=== PATIENT | female | born 1965 | race Caucasian/White ===

== ENCOUNTER 2017-01-19 16:33 | Observation (INO) | payer BC ==
[2017-01-19] MEDS ORDERED: Aspirin Low Dose CHEW TAB* 81 MG PO ONE (17:06)
[2017-01-19 17:59] LABS: Hematocrit 40 % (35-47); Hemoglobin 13.6 g/dl (12.0-16.0); Mean Corpuscular HGB Conc 34 g/dl (31-36); Mean Corpuscular Hemoglobin 32 pg (27-31); Mean Corpuscular Volume 95 fL (80-97); Mean Platelet Volume 10 um3 (7.4-10.4); Red Blood Count 4.26 10^6/ul (4.0-5.4); Red Cell Distribution Width 13 % (10.5-15); White Blood Count 7.1 10^3/ul (3.5-10.8)
--- NOTE | 2017-01-19 18:14 | RAD ---
INDICATION: Chest pain x2 days COMPARISON: None. TECHNIQUE: Single AP portable view of the chest was obtained. FINDINGS: Image quality is compromised due to the relative inferiority of a portable chest x-ray. The heart and mediastinum exhibit normal size and contour. The lungs are grossly clear. There is no evidence of a large pleural effusion. Visualized bones are normal for the patient's age. IMPRESSION: No radiographic evidence for acute cardiopulmonary abnormality on this portable chest x-ray.
[2017-01-19 18:19] LABS: Albumin 4.1 g/dL (3.2-5.2); Calcium 10.2 mg/dL (8.6-10.3); EGFR African American 85.7 (>60); EGFR Non-African American 66.6 (>60); Globulin 2.7 g/dL (2-4); Total Bilirubin 0.3 mg/dL (0.2-1.0); Total Protein 6.8 g/dL (6.4-8.9)
[2017-01-19 18:54] LABS: Potassium 4.2 mmol/L (3.5-5.0)
[2017-01-19] MEDS ORDERED: Acetaminophen TAB* 325 MG PO PRN (20:00)
[2017-01-19] MEDS ORDERED: Ondansetron INJ* 2 MG/ML VIAL IV PRN (20:00)
[2017-01-19 20:50] LABS: BUN/Creatinine Ratio 27.2 (8-20); Blood Urea Nitrogen 22 mg/dL (6-24); CO2 Carbon Dioxide 25 mmol/L (22-32); Calcium 9.7 mg/dL (8.6-10.3); Chloride 106 mmol/L (101-111); EGFR African American 95.5 (>60); EGFR Non-African American 74.3 (>60); Glucose 87 mg/dL (70-100); Sodium 139 mmol/L (133-145)
[2017-01-19 20:59] LABS: Anion Gap 8 mmol/L (2-11)
[2017-01-19] MEDS ORDERED: Heparin VIAL(*) 5000 UNITS/ML VIAL (FIVE THOUSAND) SUBCUT SCH (22:00)
--- NOTE | 2017-01-19 23:23 | HP ---
CC: Dr. Motley HISTORY AND PHYSICAL: DATE OF ADMISSION: 01/19/17 PRIMARY CARE PROVIDER: Dr. Motley ATTENDING PHYSICIAN WHILE IN THE HOSPITAL: Emeterio Austin MD * (report dictated by Daniel Cespedes NP). CHIEF COMPLAINT: Chest pain. HISTORY OF PRESENTING ILLNESS: Mrs. Weeks is a 51-year-old female patient. She has a history of asthma and history of kidney stones. She comes into the ER today stating that this morning she awoken up out of sleep with chest discomfort in the left side of her chest that went into her shoulder and upper neck. She said she did get short of breath. She felt fatigued. She was kind of diaphoretic with this. She says the pain was not exertional. When she tucks her shoulder, she noticed that she was tender there, but it did not get worse with any movement of the shoulder or sitting upright or lying flat. She was concerned because the pain kind of waxed and waned all day. It was described at times as a pressure and heaviness and then she had some chest tightness. She states that she has not had any recent trips or travel. She denied having any shortness of breath. She did state she could not take full breath. She denied having any recent fevers or chills. No URI type symptoms. Denied having any abdominal discomfort or any nausea or vomiting. She was concerned and decided to come into the ER today, was evaluated. Hospitalist service was asked to evaluate for admission for chest pain. PAST MEDICAL HISTORY: Significant for: 1. Nephrolithiasis. 2. Asthma. PAST SURGICAL HISTORY: 1. She has had a partial hysterectomy. 2. Tubal ligation. 3. Lithotripsy. 4. She has had a breast reduction. HOME MEDICATIONS: Include: 1. Super B-50 one tablet p.o. in the morning. 2. Essential oil 3% topically t.i.d. as needed. 3. Sulfurzyme 2 tablets p.o. daily. ALLERGIES TO MEDICATIONS: Include DEMEROL, LATEX, TAPE, and QUINOLONES. FAMILY HISTORY: Mother had a history of hypertension and breast cancer. Father had a history of prostate cancer. SOCIAL HISTORY: She does not smoke. Rarely drinks alcohol. Surrogate decision maker is her . REVIEW OF SYSTEMS: There is no documented fever. She denied having any significant weight change. There was no double vision. She denies having any ear discharge. There is no rhinorrhea. There is no sore throat. No thyroid enlargement. There was chest pain per my HPI. There was no shortness of breath , no orthopnea. There was no nocturnal dyspnea. There was no abdominal pain. There was no nausea, no vomiting. No dysuria. No frequency. No seizure. No loss of consciousness. No pruritus and no skin ulceration. Review of 14 systems completed, all others negative. PHYSICAL EXAMINATION GENERAL: At this time, Mrs. Weeks is a 51-year-old female patient. She is sitting on the ER stretcher. She does not appear to be in any acute distress. VITAL SIGNS: Blood pressure 105/58, pulse 54, respirations 18, O2 sat 98%, temperature 97.7. HEENT: Head: Atraumatic, normocephalic. Eyes: EOMs intact. Sclerae are anicteric and not pale. Throat: Oral mucosa appears to be moist. No oropharyngeal erythema. NECK: Supple. LUNGS: Clear to auscultation bilaterally. No wheezes, rales, or rhonchi. HEART: Sounds S1, S2. Regular rate and rhythm. No murmurs, rubs, or gallops. ABDOMEN: Soft, flat, nontender. Bowel sounds present. EXTREMITIES: Pulses are 2+ throughout. She is able to move all 4 extremities with 5/5 strength. NEUROLOGICAL: The patient is awake, alert, and oriented x3. Speech clear. Tongue midline. Customer Service Trainer equal. No gross focal deficits. SKIN: Intact. DIAGNOSTIC STUDIES/LAB DATA: WBC is 7.1, RBC 4.26, hemoglobin 13.6, hematocrit of 40, platelet count of 203. D-dimer less than 200. Sodium of 139 , potassium 4.2, chloride of 107, bicarb 29, BUN 24, creatinine 0.89, glucose 87 , lactic 0.5, calcium 10. Total bili 0.3, AST 18, ALT 14, alk phos 69. Troponin 0. Albumin of 4.1. She did have a chest x-ray obtained today, impression: No radiographic evidence for acute cardiopulmonary abnormality on this portable chest. EKG obtained today showed a normal sinus rhythm at a rate of 60. She did have flat T-waves in V2, inverted in V1, but no ST elevations were noted. Old medical records were reviewed. ASSESSMENT AND PLAN: Mrs. Weeks is a 51-year-old female patient coming in with complaints of chest pain. We were asked to evaluate for admission. She will be admitted under observation status for: 1. Chest pain. Her story is concerning that she still has chest tightness at times and has waxed and waned throughout the day, but the fact that she did not make the pain come back with touching her chest, it is not reproducible now on my exam; however, she did have some chest tightness. She did become diaphoretic at once and did feel nauseated. I do feel that she does deserve further troponins, EKG, telemetry. In addition to this, I will get a stress test tomorrow morning and we will start her on aspirin. Her D-dimer was negative and we will continue to follow her. 2. History of nephrolithiasis, not an active issue. 3. Asthma. She got asthma as a child. She is no longer on any medications. 4. DVT prophylaxis. She will be placed on SCDs. She is low risk. 5. Code status. Full code. 6. Fluids, electrolytes, and nutrition. She can have a heart-healthy diet and n.p.o. after midnight. TIME SPENT: Time spent on this admission was 60 minutes, greater than half time was spent [id number] with the patient obtaining my history and physical, other half the time was spent going over the plan of care with the patient and implementing the plan of care. I did discuss plan of care with my attending, Dr. Austin, who is in agreement. DANIEL CESPEDES, MILLIE [id number]/[facility] #: [id number] JAE
[2017-01-20 05:01] LABS: Hematocrit 40 % (35-47); Hemoglobin 13.5 g/dl (12.0-16.0); Mean Corpuscular HGB Conc 34 g/dl (31-36); Mean Corpuscular Hemoglobin 32 pg (27-31); Mean Corpuscular Volume 94 fL (80-97); Mean Platelet Volume 10 um3 (7.4-10.4); Red Cell Distribution Width 13 % (10.5-15); White Blood Count 5.4 10^3/ul (3.5-10.8)
[2017-01-20 05:15] LABS: HDL Cholesterol 48.5 mg/dL
[2017-01-20 08:55] VITALS: BP 116/70
[2017-01-20] MEDS ORDERED: Aspirin Low Dose CHEW TAB* 81 MG PO SCH (09:00)
--- NOTE | 2017-01-20 12:37 | RAD ---
HISTORY: Chest pain COMPARISONS: None TECHNIQUE: A 1 day stress/rest myocardial perfusion study was performed, with exercise stress. The exercise portion was performed using the Jeremy protocol, for a total METs of 12 point. The stress portion was monitored by Dr. Benito. Gated SPECT imaging was performed, with CT-based attenuation correction DOSE: Stress: Technetium 99m tetrofosmin, 25.37 millicuries, injected at 11:40 AM on January 20, 2017 Rest: Technetium 99m tetrofosmin, 10.3 millicuries, injected at 6:30 AM on January 20, 2017 Pharmacologic agent: None FINDINGS: CARDIAC MONITORING: Peak heart rate of 165 bpm, 98% of predicted. No ischemic changes with stress. EF: 70 % TID: 0.98 MOTION: Normal motion, with normal wall thickening. PERFUSION: There are no fixed or reversible perfusion defects. OTHER: None IMPRESSION: NO FIXED OR REVERSIBLE PERFUSION DEFECTS. ASSESSMENT: LOW RISK. Based on imaging criteria from ACC/AHA 2002. Guideline Update for the Management of Patient's with Chronic Stable Angina, table 23. Noninvasive Risk Stratification.
--- NOTE | 2017-01-20 13:19 | DCNOTE ---
Patient seen today after stress test. States chest pain has subsided, now not too bothersome. No SOB. On exam, RRR, s1 and s2 present, CTA B/L, no LE edema CP likely MSK. Cardiac work-up negative for ischemia. D/C home with PCP f/u
--- NOTE | 2017-01-21 00:06 | DS ---
CC: Dr. Rebekah Motley * DISCHARGE SUMMARY: DATE OF ADMISSION: 01/19/17 DATE OF DISCHARGE: 01/20/17 PRIMARY CARE PHYSICIAN: Dr. Rebekah Motley. PRINCIPAL DISCHARGE DIAGNOSIS: Chest pain, likely musculoskeletal. SECONDARY DIAGNOSES: 1. Nephrolithiasis. 2. History of asthma. DISCHARGE MEDICATION REGIMEN: 1. B complex 1 tablet by mouth daily. 2. Essential oil 3% topical 3 times daily as needed for pain. STUDIES DONE DURING HOSPITALIZATION: Chest x-ray impression: No radiographic evidence for acute cardiopulmonary abnormality on this portable chest x-ray. Nuclear cardiac stress test, impression: No fixed or reversible perfusion defects. Assessment, low risk. HISTORY OF PRESENT ILLNESS AND HOSPITAL SUMMARY: Please see the full history and physical by Daniel Cespedes NP for full details. Briefly, Ms. Weeks is a 61 -year- old female with past medical history as above, who presented to the hospital with 2 days of ongoing chest pain. The pain began when she was asleep and woke her up. It was radiating to the shoulder and the neck. It persisted over the following days and a friend at work urged her to come to the hospital for further workup. The patient's EKG was unremarkable. Troponins were trended and remained negative. Sent over to nuclear cardiac stress test that was unremarkable as above. D-dimer was negative. It was felt that her pain was likely due to musculoskeletal cause. She was encouraged to try Tylenol and ibuprofen over the next few for pain and follow up with Dr. Motley, her PCP as an outpatient. TIME SPENT: Total time spent on this discharge was 45 minutes. This is a summary of hospitalization. Please see the full medical record for further details. [id number]/[facility] #: [id number] [facility]
--- NOTE | 2017-01-21 10:24 | ED ---
Stephanie Jacobson Nilda, scribed for Gabe Ramirez MD on 01/20/17 at 0056 . HPI Chest Pain - HPI Summary HPI Summary: This patient is a 51 year old F presenting to [facility] accompanied by with a chief complaint of intermittent left-sided CP (heaviness) that radiated up left shoulder and upper back since 2 nights ago. Pain woke her from sleep. The patient rates the pain 1/10 in severity currently. Symptoms aggravated by deep inspiration and movement. Symptoms alleviated by spontaneous resolution. Patient reports back pain, left shoulder pain, and mild dyspnea, but denies pain in UE, cough, rash, and edema. Patient experiences heavy lifting daily. She does not take medication. She is a non-smoker and does not drink alcohol. She denies recent travel and long car trips. FHx OR. - History of Current Complaint Chief Complaint: EDChestPainROMI Time Seen by Provider: 01/19/17 17:02 Hx Obtained From: Patient Onset/Duration: Started Days Ago Timing: Intermittent Initial Severity: Severe Current Severity: Mild Pain Intensity: 2 Pain Scale Used: 0-10 Numeric Chest Pain Location: Left Lateral Chest Pain Radiates: Yes Chest Pain Radiates To:: Back, Shoulder Character: Heaviness Aggravating Factor(s): Movement, Deep Breaths Alleviating Factor(s): Spontaneous Resolution Associated Signs and Symptoms: Positive: Other: - back pain, left shoulder pain , and mild dyspnea, but denies pain in UE, cough, rash, and edema. - Allergy/Home Medications Allergies/Adverse Reactions: Allergies Allergy/AdvReac Type Severity Reaction Status Date / Time Meperidine [From Demerol HCl] Allergy Mild RASH, HIVES Verified 01/19/17 17:38 Latex Allergy Unknown UNK Verified 01/19/17 17:41 Adhesive Tape Allergy Unknown Verified 01/19/17 17:38 Reaction Details NUTS Allergy Unknown Uncoded 01/19/17 17:38 Reaction Details WHOLE WHEAT Allergy ANAPHYLACTI Uncoded 01/19/17 17:38 C PMH/Surg Hx/FS Hx/Imm Hx Respiratory History: Reports: Hx Asthma - CHILD, OK NOW History: Reports: Hx Kidney Stones - RIGHT KIDNEY STONE 2009 Musculoskeletal History: Reports: Other Musculoskeletal History - SPONDYLOSIS DX 2010 Sensory History: Reports: Hx Contacts or Glasses - CONTACTS, WILL WEAR GLASSES DOS Denies: Hx Hearing Aid Opthamlomology History: Reports: Hx Contacts or Glasses - CONTACTS, WILL WEAR GLASSES DOS - Surgical History Surgery Procedure, Year, and Place: WISDOM TEETH TEEN Hx Anesthesia Reactions: Yes Infectious Disease History: No Infectious Disease History: Denies: Traveled Outside the [place] in Last 30 Days - Family History Known Family History: Positive: Cardiac Disease - Social History Alcohol Use: Occasionally Substance Use Type: Reports: None Smoking Status (MU): Never Smoked Tobacco Review of Systems Negative: Fever, Chills Negative: Erythema Negative: Sore Throat Positive: Chest Pain - left sided CP (heaviness) Positive: Other - mild dyspnea. Negative: Shortness Of Breath, Cough Negative: Abdominal Pain, Vomiting, Nausea Negative: dysuria, hematuria Positive: Other - back pain, left shoulder pain; negative pain in UE. Negative : Myalgia, Edema Negative: Rash Neurological: Other - negative dizziness All Other Systems Reviewed And Are Negative: Yes Physical Exam - Summary Physical Exam Summary: Constitutional: Well-developed, Well-nourished, Alert. (-) Distressed Skin: Warm, Dry HENT: Normocephalic; Atraumatic Eyes: Conjunctiva normal Neck: Musculoskeletal ROM normal neck. (-) JVD, (-) Stridor, (-) Tracheal deviation Cardio: Rhythm regular, rate normal, Heart sounds normal; Intact distal pulses; The pedal pulses are 2+ and symmetric. Radial pulses are 2+ and symmetric. (-) Murmur Pulmonary/Chest wall: Effort normal. (-) Respiratory distress, (-) Wheezes, (-) Rales Abd: Soft, (-) Tenderness, (-) Distension, (-) Guarding, (-) Rebound Musculoskeletal: (-) Edema Lymph: (-) Cervical adenopathy Neuro: Alert, Oriented x3 Psych: Mood and affect Normal Triage Information Reviewed: Yes Vital Signs On Initial Exam: Initial Vitals Temp Pulse Resp BP Pulse Ox 97.7 F 61 20 151/78 100 01/19/17 16:44 01/19/17 16:44 01/19/17 16:44 01/19/17 16:44 01/19/17 16:44 Vital Signs Reviewed: Yes Diagnostics - Vital Signs Vital Signs Temp Pulse Resp BP Pulse Ox 01/19/17 16:44 97.7 F 61 20 151/78 100 - Laboratory Result Diagrams: 01/19/17 17:49 01/19/17 21:05 Lab Statement: Any lab studies that have been ordered have been reviewed, and results considered in the medical decision making process. - EKG 1653 Cardiac Rate: NL - 60 bpm EKG Rhythm: Sinus Rhythm EKG Interpretation: No STEMI Chest Pain Course/Dx - Course Course Of Treatment: This patient is a 51 year old F presenting to [facility] accompanied by with a chief complaint of intermittent left-sided CP ( heaviness) that radiated up left shoulder and upper back since 2 nights ago. Pain woke her from sleep. The patient rates the pain 1/10 in severity currently. Symptoms aggravated by deep inspiration and movement. Symptoms alleviated by spontaneous resolution. Patient reports back pain, left shoulder pain, and mild dyspnea, but denies pain in UE, cough, rash, and edema. Patient experiences heavy lifting daily. She does not take medication. She is a non- smoker and does not drink alcohol. She denies recent travel and long car trips. FHx OR. EKG reveals NSR, 60 bpm, No STEMI. 1957: Dr. Cespedes ( hospitalist) agrees to admit patient with a diagnosis of Chest Pain, unspecified. - Diagnoses Provider Diagnoses: Chest pain, unspecified - Provider Notifications Discussed Care Of Patient With: Daniel Cespedes - Hospitalist Time Discussed With Above Provider: 19:58 Instructed by Provider To: Admit As Inpatient Discharge - Discharge Plan Condition: Stable Disposition: ADMITTED TO [facility] The documentation as recorded by the Stephanie marshall Nilda accurately reflects the service I personally performed and the decisions made by me, Gabe Ramirez MD.
== END 2017-01-20 14:00 | disposition home or self-care (01) ==
LOC: ED 16:33 → MEDTELE 19:58
PROVIDERS: ADMIT Internal Medicine; ATTEND Hospitalist
DX: R07.9 Chest pain, unspecified (principal); R06.02 Shortness of breath; Z87.442 Personal history of urinary calculi; Z88.8 Allergy status to other drugs, medicaments and biological substances; Z79.899 Other long term (current) drug therapy
CPT/HCPCS: 36415; 71010; 78452; 80048; 80053; 80061; 83036; 83605; 84484; 85025; 85379; 93005; 93017; 99285; A9270-GY; A9502; G0378

== ENCOUNTER 2017-11-22 06:23 | Day surgery (SDC) | payer BC ==
--- NOTE | 2017-11-09 20:50 | HP ---
PREOPERATIVE HISTORY AND PHYSICAL: DATE OF ADMISSION: 11/22/17 [facility] PROVIDER: Lala Lemus MD * (DICTATED BY FELICIANO CASTAÑEDA) CHIEF COMPLAINT: Right index finger pain. HISTORY OF PRESENT ILLNESS: Flor is a 52-year-old female, who has been followed by Dr. Lemus for ongoing complaints of a mass at the base of her right index finger. It bothers her with any gripping activities or if she bumps it, it gets as high as a 7/10. If she does not have any pressure applied over the mass, it is not very painful. She is not taking any medication for it. She continues to be able to work. She denies any paresthesias or numbness. PAST MEDICAL HISTORY: None. PAST SURGICAL HISTORY: [place] teeth extraction, ectopic removal, partial hysterectomy, breast reduction, and lithotripsy. She does report nausea with anesthesia. CURRENT MEDICATIONS: None. ALLERGIES: DEMEROL, QUINOLONES, ADHESIVE TAPE, and LATEX. FAMILY HISTORY: Noncontributory. SOCIAL HISTORY: The patient lives with her . She works as a cook. She denies tobacco use. She denies alcoholic beverage use. She exercises regularly. REVIEW OF SYSTEMS: A 14-point review of systems was discussed with the patient. All systems were negative except discussed in the HPI. PHYSICAL EXAMINATION GENERAL: She is a well-developed, well-nourished female, in no acute distress at rest. She is alert and oriented x3 with appropriate mood and affect. VITAL SIGNS: The patient is 5 feet 4 inches, 149 pounds. Blood pressure 124/82 , pulse of 60, respirations 16, temperature 97.0. HEENT: Normocephalic, atraumatic. Hearing and vision are grossly intact. NECK: Her trachea is midline. RESPIRATORY: Lungs are clear to auscultation bilaterally. No wheezes, rales, or rhonchi. CARDIOVASCULAR: Regular rate and rhythm. No murmurs, rubs, or gallops. Normal S1, S2. ABDOMEN: Soft, nondistended, nontender. Normal bowel sounds. EXTREMITIES: Exam of the right upper extremity: Skin is intact without abrasions or open wounds. She has a tender nodule at the MP flexion crease on the right index finger. There is a negative Tinel's sign associated with it. She is able to fully flex and extend the MCP, PIP and DIP joints of all digits. Sensation to light touch is intact distally. She has a brisk capillary refill. IMPRESSION: Right index finger ganglion cyst. PLAN: The patient is to undergo right index finger mass excision by Dr. Lemus on 11/22/17. The risks, benefits, and postoperative course were discussed with the patient at length and she would like to proceed. All of her questions were answered to her full satisfaction. FELICIANO CASTAÑEDA [id number]/[facility] #: [id number] JAE
[~2017-11-22 06:23] MED LIST: Buffered Lidocaine 0.9% SYRIN* 5 ML/SYR SYRINGE INTRADERM ONE; Lidocaine 0.5%* 50 ML SDV ONE; Lidocaine 2% PF * 5 ML VIAL ONE; Propofol* 10 MG/ML 20 ML BTL IV PUSH ONE
[2017-11-22] MEDS ORDERED: Propofol* 10 MG/ML 20 ML BTL IV PUSH ONE (06:38)
[2017-11-22] MEDS ORDERED: Lidocaine 1% INJ* 10 MG/ML 30 ML SDV ONE (07:10)
[2017-11-22] MEDS ORDERED: oxyCODONE/Acetamin 5/325 MG* TAB PO PRN (08:07)
[2017-11-22] MEDS ORDERED: Naloxone* 0.4 MG/ML 1 ML VIAL IV PRN (08:07)
[2017-11-22] MEDS ORDERED: Ibuprofen TAB* 600 MG PO PRN (08:07)
[2017-11-22] MEDS ORDERED: Acetaminophen TAB* 325 MG PO PRN (08:07)
[2017-11-22] MEDS ORDERED: Ondansetron INJ* 2 MG/ML VIAL IV PRN (08:07)
[2017-11-22 08:14] VITALS: BP 102/65
--- NOTE | 2017-11-22 10:22 | OP ---
DATE OF OPERATION: 11/22/17 [facility] DATE OF : 63 SURGEON: Lala Lemus MD [employer] AGENT: FELICIANO Watson ANESTHESIA: Local MAC. PRE-OP DIAGNOSIS: Right index finger mass. POST-OP DIAGNOSIS: Right index finger mass. OPERATIVE PROCEDURE: Removal of right index finger mass. INDICATIONS FOR PROCEDURE: Flor is a 52-year-old female with a painful mass at the MP flexion crease of right index finger. She presents for removal. ESTIMATED BLOOD LOSS: Zero. TOURNIQUET TIME: 10 minutes. DESCRIPTION OF PROCEDURE: The patient was brought to the operating room. She was given a sedation anesthetic and a local infiltration of 10 cc of 1% plain lidocaine at the area of the right index finger MP flexion crease. The right upper extremity was prepped and draped in usual sterile fashion. The hand and forearm were exsanguinated and the tourniquet elevated to 250 mmHg. A transverse incision was made centered over the mass. We dissected bluntly through the subcutaneous tissue. The digital neurovascular bundle was retracted. The mass was a ganglion cyst emanating from the flexor tendon sheath. It was removed with a small portion of the flexor tendon sheath, but the tendons remained intact and in good condition. The mass was sent for pathology. The wound was irrigated and skin edges reapproximated with 4-0 nylon suture. The wound was dressed with Xeroform, 4x4, Webril, and an Shashank Wrap. The patient tolerated the procedure well and was brought to the recovery room in good condition. [id number]/[facility] #: [id number] [facility]
== END 2017-11-22 08:36 | disposition home or self-care (01) ==
LOC: OREAST 06:23
PROVIDERS: ATTEND Orthopaedic Surgery
DX: M67.441 Ganglion, right hand (principal)
CPT/HCPCS: 88304; J2704